=== PATIENT | female | born 1950 | race Caucasian/White ===

== ENCOUNTER → 2020-09-17 | Day surgery (SDC) | payer MEDICARE ==
[~2020-09-17] MED LIST: HCTZ12.5 MG PO; LOVASTATIN40 MG PO; NORCO 5-325 TA1 EACH PO; PRINIVIL20 MG PO
[2020-09-17 08:30] LABS: HCT 42.2 % (37.0-47.0); HGB 13.5 g/dl (12.5-16.0); MCH 29.3 pg (25.0-31.0); MCV 91.7 fL (78.0-100.0); RBC 4.6 M/uL (4.20-5.40); RDW 13.9 % (11.5-14.0); WBC 8.7 K/uL (4.0-10.5)
[2020-09-17 09:04] LABS: BUN/CREAT RATIO (CALC) 20.2 RATIO; CREATININE 0.94 mg/dL (0.51-0.95); POTASSIUM 3.8 mmol/L (3.5-5.1)
== END | disposition home or self-care (01) ==
LOC: FAS 07:46
PROVIDERS: Anesthesiology; Legal Medicine
DX: G56.01 Carpal tunnel syndrome, right upper limb (principal); I10 Essential (primary) hypertension; Z98.51 Tubal ligation status; Z98.890 Other specified postprocedural states; Z20.822 Contact with and (suspected) exposure to COVID-19; Z79.899 Other long term (current) drug therapy
CPT/HCPCS: 36415; 80048; J0690; J1100; J1885; J2250; J2405; J2704; J2795; J3010; J7120